=== PATIENT | male | born 1950 | race Two or more races ===

== ENCOUNTER 2017-05-03 18:09 | Emergency (ER) | payer OTHER ==
[~2017-05-03] VITALS: Ht 175.3 cm; Wt 102.1 kg
--- NOTE | 2017-05-03 18:15 | NUR ---
AAOX3, [id number] FROM [facility]: OK TO BOOK. CHEST PAIN, HIGH BP. ASA 162, NITRO x 2 GIVEN IN FIELD BY EMS. RR IS EVEN AND UNLABORED WITH NAD NOTED. SKIN IS WARM AND DRY. PLACED ON THE MONITOR AND HOSPITAL GOWN. AWAITING MD FOR EVAL. [facility] LAC 20G NOTED SECRETARY.
--- NOTE | 2017-05-03 18:24 | NUR ---
EKG IN PROGRESS AT BS
[2017-05-03 18:29] LABS: BASOPHILS # (AUTO) 0.2 /CMM (0.0-0.2); BASOPHILS % (AUTO) 1.7 % (0.0-2.0); EOSINOPHILS % (AUTO) 0.1 % (0.0-6.0); HEMATOCRIT 50 % (39-51); HEMOGLOBIN 17.5 g/dL (13.5-17.5); LYMPHOCYTES # (AUTO) 1.9 /CMM (0.8-4.8); MEAN CORPUSCULAR HEMOGLOBIN 30 PG (26.0-33.0); MEAN CORPUSCULAR HGB CONC 35 g/dl (31.0-36.0); MEAN CORPUSCULAR VOLUME 87 fL (80-96); MONOCYTES # (AUTO) 0.3 /CMM (0.1-1.30); MONOCYTES % (AUTO) 2.5 % (2.0-12.0); NEUTROPHILS # (AUTO) 8.5 /CMM (1.8-8.9); NEUTROPHILS % (AUTO) 78.7 % (43.0-81.0); PLATELET COUNT (AUTO) 297 /CMM (150-450); RDW COEFFICIENT OF VARIATION 12.3 (11.5-15.0); RED BLOOD CELL COUNT(AUTO) 5.76 MIL/uL (4.5-6.0); WHITE BLOOD COUNT (AUTO) 10.9 K/uL (4.3-11.0)
[2017-05-03] MEDS ORDERED: LABETALOL HCL IV 100MG VIAL ONE (18:29)
[2017-05-03] MEDS ORDERED: ONDANSETRON HCL/PF 4 MG/2 ML VIAL ONE (18:29)
[2017-05-03] MEDS ORDERED: ASPIRIN 81 MG TAB.CHEW ONE (18:29)
[2017-05-03] MEDS ORDERED: ONDANSETRON HCL/PF 4 MG/2 ML VIAL IVP ONE (18:30)
[2017-05-03] MEDS ORDERED: LABETALOL HCL IV 100MG VIAL IV ONE (18:30)
[2017-05-03] MEDS ORDERED: ASPIRIN 81 MG TAB.CHEW PO ONE (18:30)
[2017-05-03 18:39] LABS: CALCIUM, SERUM 9.4 mg/dL (8.5-10.1); CARBON DIOXIDE 25 mmol/L (21-32); CHLORIDE 103 mmol/L (98-107); GLUCOSE 125 mg/dL (74-106); POTASSIUM 3.7 mmol/L (3.5-5.1); SODIUM SERUM 138 mmol/L (136-145); UREA NITROGEN, BLOOD 12 mg/dL (7-18)
[2017-05-03 18:45] LABS: ALANINE AMINOTRANSFERASE 31 U/L (12-78); ALBUMIN 4.2 g/dL (3.4-5.0); ALKALINE PHOSPHATASE 67 U/L (46-116); ASPARTATE AMINOTRANSFERASE 23 U/L (15-37); BILIRUBIN,DIRECT 0.2 mg/dL (0.0-0.2); BILIRUBIN,TOTAL 1.2 mg/dL (0.2-1.0); TOTAL PROTEIN, SERUM 7.8 g/dL (6.4-8.2)
[2017-05-03 18:47] LABS: TROPONIN I < 0.017 ng/mL (0.00-0.056)
[2017-05-03] MEDS ORDERED: MORPHINE SULFATE INJ 4 MG/ML DISP.SYRIN ONE (18:59)
[2017-05-03] MEDS ORDERED: hydrALAZINE HCL IV 20 MG VIAL ONE ×2 (18:59→21:06)
[2017-05-03] MEDS ORDERED: hydrALAZINE HCL IV 20 MG VIAL IV ONE ×2 (19:00→21:00)
[2017-05-03] MEDS ORDERED: ONDANSETRON HCL/PF - ER 4 MG/2 ML VIAL IV ONE (19:00)
[2017-05-03] MEDS ORDERED: MORPHINE SULFATE INJ 2 MG/ML DISP.SYRIN IV ONE (19:00)
--- NOTE | 2017-05-03 19:04 | NUR ---
REPORT GIVEN TO FANG GASPAR FOR EJNNIFER.
--- NOTE | 2017-05-03 19:10 | NUR ---
REPORT RECEIVED FROM FANG CHOWDARY FOR JENNIFER.
--- NOTE | 2017-05-03 21:04 | NUR ---
MADE AWARE OF PT B/P 200/101. NEW ORDERS RECEIVED.
--- NOTE | 2017-05-03 21:34 | NUR ---
IV removed. Catheter intact and site benign. Pressure and 4x4 applied to site. No bleeding noted. Patient discharged into [employer] custody in stable condition, patient is ok to book. Written and verbal after care instructions given. Patient verbalizes understanding of instruction. Patient ambulatory with a steady gait.
[2017-05-03 21:36] VITALS: BP 166/88
== END 2017-05-03 21:36 ==
LOC: ER 18:12
DX: R07.2 Precordial pain (principal); I10 Essential (primary) hypertension; Z79.82 Long term (current) use of aspirin
CPT/HCPCS: 36415; 71045-TC; 80048-TC; 80076-TC; 84484-TC; 85025-TC; 85730-TC; A4606; J0360; J2270; J2405; J3490; Z7610